=== PATIENT | female | born 1985 | race Caucasian/White ===

== ENCOUNTER 2024-11-10 10:02 | Outpatient (AMB) | payer OTHER, SELFPAY ==
--- NOTE | 2024-11-10 10:09 | MHC.OFFVIS ---
Vital Signs 11/10/24 10:20 BP 128/88 Blood Pressure Location Rt brachial Position Sitting Respiration 16 Pulse 69 Pulse Oximetry (%) 98 Intake Visit Reasons: Re-Establish Care - Migraine Allergies amoxicillin Allergy (Unknown, Verified 11/10/24 10:20) Unknown Penicillins Allergy (Unknown, Verified 11/10/24 10:20) Unknown HPI Comments Details: Rosibel is a 39-year-old female patient presenting to the clinic for a migraine intake visit. She is transferring her care from [facility] to [facility]. She was previously following me at [facility]. She has been treating her migraines with Botox therapy and Ajovy for maintenance therapy and historically has not had much luck with abortive therapy. She is currently experiencing migraine headaches 5 times per week and has been consistent with her Botox therapy as well as Ajovy injections once monthly. She notes that over the course of the last month she has had visual auras described as shapes in her left visual field which block her vision on that side. Approximately 10-15 minutes later she develops a headache. Headaches are similar to previous. She has however never experienced visual auras in the past aside from the last month or so. She has had a total of 3 migraines with aura since that time. She is not sure if anything has triggered this. She has not had any obvious changes in her menses though historically this has been irregular and while she does note some stress triggers at home these do not seem to have been more acute over the last month and prior. We did review that prior to her start up on Botox therapy, she was having migraines on a near daily basis accompanied by sound sensitivity and nausea that were heavily impacting her day-to-day life. With initiation of Botox therapy, she does feel that her migraines are much better controlled as she is now experiencing 5 migraine days per month in comparison to nearly 30. Headache characteristics: Time of onset:Age 31 Location: Bilateral and retro-orbital but can be unilateral Radiation: None Positional component:None Character: Throbbing and stabbing Severity: Can be severe and affect ability to perform ADLs Duration: Can last up to an entire day and even extended so the next day Frequency:5 per week Acute aggravating factors: Loud noises and stress Acute relieving factors: Rest and quiet Associated symptoms:Nausea, sensitivity to sound Aura: Left visual aura Headache triggers:Stress Relation to menses:Menses are not regular Other related background information: Sleep:Awakening from sleep feeling tired. Has a deviated septum. Will be having a sleep study soon Stressors:Stress at home regarding her son Hydration:Good Caffeine intake: Total 1 red bull per day Alcohol intake:None Substance use:None Tobacco use:None Last eye exam:1-2 years ago Last dental visit:1 year ago History of head injury: None Family planning considerations:None. Not planning to become Past medication trials: Metoprolol-side effects Elavil side effects Magnesium/B2-not effective Topamax-kidney stones Sumatriptan- Sideffects Rizatriptan- Sideffects Sumatriptan not effective Ubrelvy- Ineffective Nurtec- Nausea Prior workup: MRI brain 05/19/2020 with [facility]. This was noted in prior documentation to be normal. No report or images available for my review. Review of Systems Const Reports as per HPI Physical Exam Const General: cooperative, healthy appearing, comfortable and no acute distress Nutritional Appearance: well nourished Orientation/consciousness: patient oriented x3 Limitations: no limitations HEENT Head: Yes normal to inspection and Yes normocephalic Eyes General: appearance normal, both eyes and all related structures Visual Villa: normal visual villa by confrontation Alignment and Position: alignment normal Periorbital: periorbital findings normal Eyelids: Yes eyelids normal Conjunctivae: conjunctivae normal Sclerae: sclerae normal Neck Neck: Yes normal visual inspection and Yes full ROM General: Yes no CVA tenderness Back/Spine/Pelvis Back: no CVA tenderness Cervical Spine: normal cervical lordosis Thoracic/Lumbar Spine: thoracic and lumbar spine normal to inspection Neuro General: patient oriented x3, tone normal and deep tendon reflexes 2+ bilaterally Cranial nerves: Yes CN's II-XII intact bilaterally and Yes Facial sensation intact/muscles of mastication intact Cognition (Neuro): normal cognition Gait exam (Neuro): Normal gait present Motor exam (neuro): 5/5 motor strength present throughout and no tremor noted Sensory Exam: double simultaneous stimulation for sensation normal Romberg Test: Negative Pupils: Normal pupillary reactivity/response: bilateral Psych Appearance: grossly normal Mental Status: mental status grossly normal Speech and movement: Normal speech and movement present and Clear speech present Affect: normal affect Attitude: cooperative Thought process: Normal thought process present Thought content: Normal thought content present Insight: Good insight present (Psych) Judgement: Good judgement present (Psych) Assessment & Plan Assessment & Plan (1) Chronic migraine with aura without status migrainosus, not intractable: Code(s): G43.E09 - Chronic migraine with aura, not intractable, without status migrainosus Category: Medical Plan Rosibel is a 39-year-old female patient presenting today to establish care for her migraine treatment and management. She has been doing much better on Ajovy once monthly in combination with Botox therapy every 12 weeks. She however has not had much luck with as needed/acute therapy but has never tried a nasal triptan in the past. I will send for a trial of nasal zolmitriptan. Because she has had a change in her migraines which now include visual auras, I will also recommend that we obtain an MRI of the brain to rule out any structural abnormalities. -Continue Ajovy 225 mg once monthly for migraine prevention -Continue Botox every 12 weeks for migraine prevention -MRI brain without contrast -Trial of nasal zolmatriptan -Follow-up will be determined based on Botox approval time Coding Level of Care Code New Pt Level 4 (45045) Diagnoses Chronic migraine with aura without status migrainosus, not intractable G43.E09
[2024-11-10 10:20] VITALS: BP 128/88; PULSE 69; RESP 16; O2SAT 98
--- OUTSIDE RECORDS SUMMARY | 2024-11-10 12:08 | XMS_ITS | Patient Health Record ---
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 Name Role Phone Gisselle Andrade Primary Care Provider Unavaila ble Allergies Allergen (clinical drug ingredient) Drug/Non Drug Allergy documented on EMR Reaction Allergy Type Onset Date Status amoxicillin Amoxicillin Unknown Drug Allergy Act adri strawberry allergenic extract [place] (Diagnostic) Unknown Drug Allergy Active Reason For Referral No Information Medications Medication SIG (Take, Route, Fr equency, Duration) Notes Start Date End Date Status Albuterol Sulfate Un known Cetirizine HCl 10 MG 1 tablet Orally Once a day Unknown Omeprazole 20 MG 1 capsule 30 minutes before morning meal Orally Once a day U nknown Suboxone Unknown Vitamin D Unknown Artificial Tears Unk nown Nurtec 75 MG 1 tablet on the tong ue and allow to dissolve as needed for migraine. Max dose 1 pill in 24h. Orally Once a day PRN Ac tive Botox 200 UNIT 165 Units for tx of headaches Injection; Duration: 90 days 11/01/2022 Act adri Ajovy 225 MG/1.5ML 1 INJECTION MONTHLY SUBCUTANEOUS ONCE A MONTH 30 DAYS; Duration: 30 Active Etonogestrel 68 MG as directed Subcutaneous Unknown Social History Sex Assigned At : Social History Observation Description Sex Assigned At Female Section Notes: 4 children. 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 tobacco- no etoh- no cannabis- no drugs- remote hx Problems Problem Type SNOMED Code ICD Code Onset Dates Problem Status W/U Status Risk Notes Problem Migraine without aura, not refractory (011149055) Migraine without aura and without status migrainosus, not intractable (G43.009) Active confirmed Problem Refractory migraine without aura (152701024) Intractable migraine without aura and without status migrainosus (G43.019) Active confirmed Plan Of Treatment No Information Insurance Providers Payer Name Payer Address Payer Phone Subscriber Number Group Number Insured Name Patient Relationship to Insured Coverage Start Date Coverage End Date [facility] [address] [place] [address] [id number] Rosibel Kelley Self - patient is the insured [facility] [address] [place] [address] [id number] Rosibel Kelley Self - patient is the insured Medical (General) History Medical History History ICD Code allergic rhinitis GERD anxiety/depression obesity migraines asthma hx opioid dependence hx kidney stone Surgical History Surgery Date(Month/Year) lithotripsy
== END 2024-11-10 10:50 | disposition home or self-care (01) ==
LOC: HO.HSM 10:02
PROVIDERS: PCP Physician Assistant; Visit Provider Nurse Practitioner
DX: G43.E09 Chronic migraine with aura, not intractable, without status migrainosus (principal)
CPT/HCPCS: 99204

== ENCOUNTER → 2024-11-10 10:02 | Outpatient (BNVA) | payer OTHER, SELFPAY | PROVIDERS: PCP Physician Assistant; Visit Provider Nurse Practitioner | DX: G43.E09 Chronic migraine with aura, not intractable, without status migrainosus (principal) | CPT/HCPCS: 99202 ==

== ENCOUNTER 2024-11-15 09:59 | Outpatient (AMB) | payer OTHER, SELFPAY ==
[2024-11-15 10:00] VITALS: BP 122/80; PULSE 88; RESP 16; O2SAT 99; BMI 23.3
--- NOTE | 2024-11-15 10:00 | A.OFFVIS_ITS ---
Vital Signs 11/15/24 10:00 Height 5 ft 4 in Weight 136 lb BMI 23.3 BP 122/80 Blood Pressure Location Lt brachial Position Sitting Respiration 16 Pulse 88 Pulse Oximetry (%) 99 Intake Visit Reasons: 1 200u Vial Buy& bill Broomcorn Thresher Required: No Allergies amoxicillin Allergy (Unknown, Verified 11/15/24 10:01) Unknown Penicillins Allergy (Unknown, Verified 11/15/24 10:01) Unknown HPI Comments Details: Rosibel is a 39-year-old female patient presenting to the clinic for Botox therapy. She is transferring her care from [facility] to [facility]. She was previously following me at [facility]. She has been treating her migraines with Botox therapy and Ajovy for maintenance therapy and historically has not had much luck with abortive therapy. She is currently experiencing migraine headaches 5 times per week and has been consistent with her Botox therapy as well as Ajovy injections once monthly. She has no concerns for today's visit. Per last documented office note: She notes that over the course of the last month she has had visual auras described as shapes in her left visual field which block her vision on that side. Approximately 10-15 minutes later she develops a headache. Headaches are similar to previous. She has however never experienced visual auras in the past aside from the last month or so. She has had a total of 3 migraines with aura since that time. She is not sure if anything has triggered this. She has not had any obvious changes in her menses though historically this has been irregular and while she does note some stress triggers at home these do not seem to have been more acute over the last month and prior. We did review that prior to her start up on Botox therapy, she was having migraines on a near daily basis accompanied by sound sensitivity and nausea that were heavily impacting her day-to-day life. With initiation of Botox therapy, she does feel that her migraines are much better controlled as she is now experiencing 5 migraine days per month in comparison to nearly 30 . Headache characteristics: Time of onset:Age 31 Location: Bilateral and retro-orbital but can be unilateral Radiation: None Positional component:None Character: Throbbing and stabbing Severity: Can be severe and affect ability to perform ADLs Duration: Can last up to an entire day and even extended so the next day Frequency:5 per week Acute aggravating factors: Loud noises and stress Acute relieving factors: Rest and quiet Associated symptoms:Nausea, sensitivity to sound Aura: Left visual aura Headache triggers:Stress Relation to menses:Menses are not regular Other related background information: Sleep:Awakening from sleep feeling tired. Has a deviated septum. Will be having a sleep study soon Stressors:Stress at home regarding her son Hydration:Good Caffeine intake: Total 1 red bull per day Alcohol intake:None Substance use:None Tobacco use:None Last eye exam:1-2 years ago Last dental visit:1 year ago History of head injury: None Family planning considerations:None. Not planning to become Past medication trials: Metoprolol-side effects Elavil side effects Magnesium/B2-not effective Topamax-kidney stones Sumatriptan- Sideffects Rizatriptan- Sideffects Sumatriptan not effective Ubrelvy- Ineffective Nurtec- Nausea Prior workup: MRI brain 05/19/2020 with [facility]. This was noted in prior documentation to be normal. No report or images available for my review. Review of Systems Const Reports as per HPI Physical Exam Vital Signs: Last Vital Signs Pulse 88 11/15/24 10:00 Resp 16 11/15/24 10:00 BP 122/80 11/15/24 10:00 Pulse Ox 99 11/15/24 10:00 BMI result Body Mass Index 23.3 Const General: cooperative, comfortable and no acute distress Orientation/consciousness: patient oriented x3 HEENT Head: Yes normal to inspection Eyes General: appearance normal, both eyes and all related structures Alignment and Position: alignment normal EOM: EOMs intact bilaterally Neuro General: patient oriented x3 Cranial nerves: Yes CN's II-XII intact bilaterally Cognition (Neuro): normal cognition Gait exam (Neuro): Normal gait present Office Procedures Botulinum toxin Injection Details: Procedure: Botox therapy for Chronic Migraine Laterally: Bilateral Indications: Chronic Migraine Medications: Botox 155units Timeout performed before procedure, patient identified with full name and date of . Risks and benefits of procedure reviewed, as well as site verified, sonsent signed, allergies reviewed, and medication reconsilliatino reviewed/completed. Following universal hygiene protocol and PREEMPT protocol, Botox 200unit vial was reconstituted with 4cc normal saline for a final concentration of 5units/0.1cc. The areas of injection were cleansed with alcohol. A 30g 0.5 needle was used to administer the injections as below. Procerus: 5units midline Personnel Technician: 5units left and 5units right Frontalis: 10units left and 10units right Temporalis: 20units left and 20units right Occipitalis:15units left and 15units right Cervical paraspinal 10units left and 10units right Trapezius 15units left and 15units right No noted paresthesias during injection 155units of Botox used and 45units wasted per PREEMPT protocol Complications: None Patient was observed for 15 minutes after the procedure and discharged home with instructions to apply ice to their head as needed. [address]167 - Migraine Procedure code (CPT) selection complete Office Meds onabotulinumtoxinA 200 unit solution for injection Performing Provider: Evangelina Beltran CNP [place] [facility] [place] [facility] Administered by: Evangelina Beltran CNP on 11/15/24 10:42 Dose Route Admin Location Dispensed Lot Number Expiration Date [facility] [employer] 155 unit IM 200 units [id number] 01/30/27 1503-5800-03 [employer] AN/BOTOX Total Dispensed Waste 200 units 22.5 % Assessment & Plan Assessment & Plan (1) Chronic migraine without aura without status migrainosus, not intractable: Code(s): G43.709 - Chronic migraine without aura, not intractable, without status migrainosus Category: Medical Plan: . Plan Chronic migraine. Here today for Botox therapy. Botox therapy was performed without any complications. Patient discharged at baseline. -follow up in 12 weeks for next round of Botox therapy -patient will contact me in the meantime should any concerns arise -continue zolmitriptan nasal spray for as-needed abortive therapy Orders: Orders AMB Botulinum toxin Injection Today G43.709 - Chronic migraine without aura, not intractable, without status migrainosus Coding Level of Care Code Est Pt Level 1 (27520) Diagnoses Chronic migraine without aura without status migrainosus, not intractable G43.709 CPT Codes Botox Injection - Botox 3: 47367 - Migraine ([id number])
--- OUTSIDE RECORDS SUMMARY | 2024-11-15 12:26 | XMS_ITS | Patient Health Record ---
Author Organization [place] [address] Location Address [address] [place] [phone] Care Team Providers Care Irish Moss Gatherer Name Role Phone Gisselle Andrade Primary Care Provider Unavaila ble Allergies Allergen (clinical drug ingredient) Drug/Non Drug Allergy documented on EMR Reaction Allergy Type Onset Date Status amoxicillin Amoxicillin Unknown Drug Allergy Act adri strawberry allergenic extract [place] (Diagnostic) Unknown Drug Allergy Active Reason For [...] Notes Problem Migraine without aura, not refractory (438026494) Migraine without aura and without status migrainosus, not intractable (G43.009) Active confirmed Problem Refractory migraine without aura (584110990) Intractable migraine without aura and without status migrainosus (G43.019) Active confirmed Plan Of Treatment No Information Insurance Providers Payer Name Payer Address Payer Phone Subscriber Number Group Number Insured Name Patient Relationship to Insured Coverage Start Date Coverage End Date [facility] [address] [place] [address] [id number] Rosibel Kelley Self - patient is the insured [facility] [address] [place] [address] [id number] Rosibel Kelley Self - patient is the insured Medical (General) History Medical History History ICD Code allergic rhinitis GERD anxiety/depression obesity migraines asthma hx opioid dependence hx kidney stone Surgical History Surgery Date(Month/Year) lithotripsy
== END 2024-11-15 10:48 | disposition home or self-care (01) ==
LOC: HO.HSM 10:00
PROVIDERS: PCP Physician Assistant; Visit Provider Nurse Practitioner
DX: G43.709 Chronic migraine without aura, not intractable, without status migrainosus (principal)
CPT/HCPCS: 64615

== ENCOUNTER → 2024-11-15 09:59 | Outpatient (BNVA) | payer OTHER, SELFPAY | PROVIDERS: PCP Physician Assistant; Visit Provider Nurse Practitioner | DX: G43.709 Chronic migraine without aura, not intractable, without status migrainosus (principal) | CPT/HCPCS: 64615; 99211; J0585 ==

== ENCOUNTER 2025-02-14 19:08 | Outpatient (REF) | payer OTHER, SELFPAY ==
--- NOTE | ~2025-02-14 | MR_ITS ---
EXAMINATION: MR BRAIN WITHOUT CONTRAST CLINICAL INFORMATION: G 43.809. Chronic migraine with aura. COMPARISON: None available. TECHNIQUE: MRI of the brain was obtained using routine sequences without contrast. FINDINGS: No restricted diffusion. No acute intracranial hemorrhage, mass effect, midline shift, hydrocephalus or herniation. Caballero-white matter differentiation is normal. Posterior cranial fossa contents demonstrated no signal abnormality or mass effect. Normal position of the cerebellar tonsils. Sellar/suprasellar region is normal. Flow-void signal within the main cerebral vessels is normal. Multiple mucus retention cyst, left maxillary sinus. MR/MR head/brain wo con IMPRESSION: No acute or structural brain abnormality. Electronically signed by: Daniel Perez MD 02/15/2025 06:43 AM GOKUL BRAVO
--- OUTSIDE RECORDS SUMMARY | 2025-02-14 22:49 | XMS_ITS | Patient Health Record ---
Author Organization [facility] [address] Location Address [address] [place] [phone] Care Team Providers Care Bulb Weeder Name Role Phone Gisselle Andrade Primary Care Provider Unavaila ble Allergies Allergen (clinical drug ingredient) Drug/Non Drug Allergy documented on EMR Reaction Allergy Type Onset Date Status amoxicillin Amoxicillin Unknown Drug Allergy Act adri strawberry allergenic extract [place] (Diagnostic) Unknown Drug Allergy Active Reason For [...] Notes Problem Migraine without aura, not refractory (597233625) Migraine without aura and without status migrainosus, not intractable (G43.009) Active confirmed Problem Refractory migraine without aura (755531075) Intractable migraine without aura and without status migrainosus (G43.019) Active confirmed Plan Of Treatment No Information Insurance Providers Payer Name Payer Address Payer Phone Subscriber Number Group Number Insured Name Patient Relationship to Insured Coverage Start Date Coverage End Date [facility] [address] [place] [address] [id number] Rosibel Kelley Self - patient is the insured [facility] [address] [place] [phone] [id number] Rosibel Kelley Self - patient is the insured Medical (General) History Medical History History ICD Code allergic rhinitis GERD anxiety/depression obesity migraines asthma hx opioid dependence hx kidney stone Surgical History Surgery Date(Month/Year) lithotripsy
--- OUTSIDE RECORDS SUMMARY | 2025-02-14 22:49 | XMS_ITS | Data Portability ---
Author Organization [place] - [employer] [facility], [facility] Quality And Reliability Engineer Address [address] [place] [address] Assessment Encounter Date Assessment Date Assessment LastModified by Organization Details LastModified Time 11/27/2021 11/27/2021 Problems Problems reviewed by: Marilin Borden Problems reviewed on: 11/27/2021 10:44 am Allergies Allergies reviewed by: Marilin Borden Allergies reviewed on: 11/27/2021 10:38 am amoxicillin Penicillins Medications Medications reviewed by: Marilin Chenlard Medications reviewed on: 11/27/2021 10:38 am Suboxone Vitals Blood Pressure: 115/72 Pulse: 68 bpm Completed Procedures D0330 - Panoramic radiographic image Diagnoses: Z01.20 D0140 - Limited oral evaluation - problem focused Diagnoses: Z01.20 Completed Procedures (cont.) Additional Comments: Explained and discussed conditions, findings, and plan of care. Follow-Up/Next Visit: Next appointment date is 02/13/2022 at 2:30 PM Problems Problems reviewed by: Marilin Borden Problems reviewed on: 11/27/2021 10:44 am Allergies Allergies reviewed by: Marilin Borden Allergies reviewed on: 11/27/2021 10:38 am amoxicillin Penicillins Medications Medications reviewed by: Marilin Chenlard Medications reviewed on: 11/27/2021 10:38 am Suboxone Vitals Blood Pressure: 115/72 Pulse: 68 bpm Additional Comments: Explained and discussed conditions, findings, and plan of care. Follow-Up/Next Visit: Next appointment date is 02/13/2022 at 2:30 PM Completed Procedures D7140 - Extraction, erupted tooth or exposed root (elevation and/or forceps removal) Teeth: 2 Diagnoses: K04.7 D0330 - Panoramic radiographic image Diagnoses: Z01.20 D0140 - Limited oral evaluation - problem focused Diagnoses: Z01.20 Completed Procedures (cont.) 1 lidocaine, ext #2 Additional Comments: Explained and discussed conditions, findings, and plan of care. Follow-Up/Next Visit: Next appointment date is 02/13/2022 at 2:30 PM I attest that the treatment rendered today is completed and treatment met the standard of care. , 11:15 AM. [id number] Not available 12/04/2021 14:24:14 03/12/2023 03/12/2023 Reason for Encounter Limted/Emergency Encounter Date: 03/12/2023 Problems Problems reviewed by: Yoly Escalona Problems reviewed on: 03/12/2023 09:04 am Allergies Allergies reviewed by: Yoly Escalona Allergies reviewed on: 03/12/2023 09:04 am amoxicillin Penicillins Medications Medications reviewed by: Yoly Escalona Medications reviewed on: 03/12/2023 09:04 am Suboxone ZyrTEC Treatment Planned Procedures D3330 - Endodontic therapy, molar (excluding final gnosticism) Teeth: 19 Stages: One, Two, Final D3320 - Endodontic therapy, bicuspid tooth (excluding final gnosticism) Teeth: 20 Stages: One, Two, Final D7210 - Extraction, erupted tooth requiring removal of bone and/or sectioning of tooth, and including elevation of mucoperiosteal flap if indicated Teeth: 19 20 Completed Procedures D0140 - Limited oral evaluation - problem focused D0220 - Intraoral - periapical first radiographic image Teeth: 20 Completed Procedures (cont.) Pt presents for limited exam.Medical and dental hx reviewed. PT IS ALLERGIC TO PENICILLIN. CC. : severe constant pain in lower left teeth, pointing to tooth # 19 area. 1 PA of # 20 acquired, showing signs of PARL along the apical of #20, #19 also deep decay mostly from the buccal surface. Clinical exam reveals extensive decay approximating nerve from the distal surface #20,#19 from buccal surface. Tender to palpation and percussion. Possible acute apical periodontitis #19 and periapical abcess #20. Rec RCT, B/U and crown with an alternative for EXT. Pt not sure what treatment she wants to get done and would definitely want to save the tooth if possible.pt was prescribed antibiotics at [facility] urgent care that she has taken.Pt was dimissed in good condition with no complications from today's Tx. N.V. see non destructive evaluation manager: rct/ext? Additional Comments:pt was also given a referral to find providers if they can provide treatment rct/ext by a different provoder taking her insurance. Explained and discussed conditions, findings, and plan of care. Follow-Up/Next Visit: Next appointment date is 08/01/2023 at 09:00 AM Treating Provider: Juan Manuel Noe DDS Reason For Encounter: Extractions Treating Provider ABRIL Yen I attest that the treatment rendered today is completed and treatment met the standard of care. , 9:47 AM. [email or web address] Not available 03/13/2023 10:35:23 09/01/2023 09/01/2023 Reason for Encounter Endodontics Encounter Date: 8:00 AM - 09/01/2023 Treating Provider: ABRIL Yen Problems Problems reviewed by: María Elena Rhodes Problems reviewed on: 09/01/2023 08:12 am Allergies Allergies reviewed by: María Elena Rhodes Allergies reviewed on: 09/01/2023 08:12 am amoxicillin Penicillins Medications Medications reviewed by: María Elena Rhodes Medications reviewed on: 09/01/2023 08:12 am Suboxone ZyrTEC Completed Procedures D0140 - Limited oral evaluation - problem focused Completed Procedures (cont.) Pt presents for limited exam.Medical and dental hx reviewed. CC. : on and off pain in the lower left back teeth area,where the rct was planned #19,#20 No Xrays were taken today, Clinical exam reveals extensive decay approximating nerve from the buccal surface on #19 DB surface the cavity is deep into gumline and may need crown lwngthening for permanent restorative procedure. Tender to palpation and percussion. Possible acute apical periapical abcess #19,#20 Rec RCT, B/U and crown with an alternative for EXT. Pt said she has different insurance now and not [facility] and wants to go to [facility] to see if she can have sooner appointments a sshe doesnot want to do one procedure today and wait 6 months for next procedure.Pt was dimissed in good condition with no complications from today's Tx. N.V. see non destructive evaluation manager:follow up.Pt will call if she teeth are symptomatic and antibiotics will be prescribed only then. Additional Comments: Explained and discussed conditions, findings, and plan of care. Treating Provider ABRIL Yen I attest that the treatment rendered today is completed and treatment met the standard of care. , 11:23 AM. [email or web address] Not available 09/02/2023 08:19:30 Plan of Treatment Reminders Order Date Submit Date Provider Last Modified By Organization Details Last Modified Time Details Appointments None record ed. Lab None record ed. Referral None record ed. Procedures None record ed. Surgeries None record ed. Imaging None record ed. Medication Orders None record ed. Patient TargetsNo targets recorded. Patient InstructionsNo instructions recorded. Reason for Referral None Reported. Medical Equipment None Reported. Allergies Allergen ID Allergen Name Allergen Category Reaction Reaction Severity Criticality Documentation Date Start Date Code Code System Note Provider Name and Address Organization Details Recorded Time 765371 amoxicill in medicatio n Not available Not available Not available 11/27/2021 723 RxNorm Not Available [facility] - 3791 09:57:24 477516 Product containin g penicilli n (product) medicatio n Not available Not available Not available 11/27/2021 33036 8001 SNOMED [facility] 2 09:57:47 Medications Name Sig Start Date Stop Date Status Note LastModified by Organization Details LastModified Time Zyrtec active Not Available Not Availa ble Not Available Suboxone active Not Available Not Avai lable Not Available Vitals Date Recorded Heart rate Systolic And Diastolic Provider Name and Address Organization Details Last Updated DateTime 11/27/2021 68 /min 115/72 mm[Hg] Not Available [facility] 379111/27/2021 10:43:19 Social History None recorded. Functional Status None recorded. Mental Status None recorded. Family History Nothing Reported. Medical History No medical history recorded. Gynecological HistoryNo gynecological history recorded. Obstetrics History GPAL:G 0 P 0 0 0 0 Past Encounters Encounter ID Performer Location Encounter Start Date Encounter Closed Date Diagnosis/Indication Diagnosis SNOMED-CT Code Diagnosis ICD10 Code Diagnosis IMO Codes Diagnosis Note [id number] Perfecto Magdaleno [address] [place] [address] 11/27/2021 09:52:20 12/04/2021 14:24:16 [id number] Ekateirna jara [address] [address] 03/12/2023 08:21:05 03/13/2023 10:35:28 [id number] Ekaterina jara [address] [place] [address] 09/01/2023 08:02:20 09/02/2023 08:19:34 Health Concerns Section Related Observation LastModified by Organization Detai ls LastModified Time None Recorded Concern Status LastModified by Organization Details LastModified Time None Recorded Advance Directives Directive None Recorded Payers Insurance Date Sequence Insurance Name Policy Number Policy Morris Covered Member ID Morris Member ID Guarantor Name 09/01/2023 [employer] Rosibel Rodarte [id number] Rosibel Rodarte 09/01/2023 1 [facility] PUBLIC PLANS [facility] [id number] Rosibel Rodarte [id number] Rosibel Rodarte 11/27/2021 [employer] (MOVED TO HOLD) Rosibel Rodarte [id number] Rosibel Rodarte 11/27/2021 *SELF PAY* Rosibel Rodarte 09/01/2023 [place] Rosibel Rodarte [id number] Rosibel Rodarte 05/27/2024 [place] 21 Rosibel Rodarte [id number] Rosibel Rodarte 05/27/2024 HEALTH SAFETY NET PARTIAL Rosibel Rodarte [id number] Rosibel Rodarte 05/27/2024 HSN OVER 21 [id number] Rosibel Rodarte [id number] Rosibel Rodarte OBLeigh Episode No OBEpisode recorded.
== END 2025-02-14 19:09 | disposition home or self-care (01) ==
LOC: HO.MRI 19:08
PROVIDERS: Visit Provider Nurse Practitioner
DX: G43.E09 Chronic migraine with aura, not intractable, without status migrainosus (principal)
CPT/HCPCS: 70551

== ENCOUNTER → 2025-02-14 19:18 | Outpatient (BNV) | payer OTHER, SELFPAY | PROVIDERS: Visit Provider Radiology Diagnostic Radiology | DX: G43.E09 Chronic migraine with aura, not intractable, without status migrainosus (principal) | CPT/HCPCS: 70551 ==

== ENCOUNTER 2025-02-15 09:29 | Outpatient (AMB) | payer OTHER, SELFPAY ==
--- NOTE | 2025-02-15 09:36 | A.OFFVIS_ITS ---
Vital Signs 02/15/25 09:40 Height 5 ft 4 in Weight 136 lb BMI 23.3 BP 120/72 Blood Pressure Location Rt brachial Position Sitting Respiration 16 Pulse 84 Pulse Oximetry (%) 98 Oxygen Delivery Method Room Air Intake Visit Reasons: 200u Botox Circulation Assistant Required: No Allergies amoxicillin Allergy (Unknown, Verified 02/15/25 09:42) Unknown Penicillins Allergy (Unknown, Verified 02/15/25 09:42) Unknown HPI Comments Details: Rosibel is a 39-year-old female patient presenting to the clinic for Botox therapy. She has been treating her migraines with Botox therapy and Ajovy for maintenance therapy and historically has not had much luck with abortive therapy. She is currently experiencing migraine headaches 4 times per week and has been consistent with her Botox therapy as well as Ajovy injections once monthly. Since the time of last visit, she had 1 migraine with aura. The other migraines have not included aura. She did try the zolmitriptan nasal spray x1 but it produced anxiety for her and she has not tried again. It might have produced a slight improvement in her headache that day. After her last round of Botox therapy, she did develop a very severe headache after the injection that resolved on its own. To review: Rosibel history of migraine without aura for course of the last few months, she has developed some visual auras with her migraines. It is rare that she will have if not less. Otherwise, save for typical characteristics. At the time of our last visit, because she was having change in her migraines including the new onset of auras, I did perform an MRI of the brain which she had completed on 12/25. This was a normal study. Headache characteristics: Time of onset:Age 31 Location: Bilateral and retro-orbital but can be unilateral Radiation: None Positional component:None Character: Throbbing and stabbing Severity: Can be severe and affect ability to perform ADLs Duration: Can last up to an entire day and even extended so the next day Frequency:5 per week Acute aggravating factors: Loud noises and stress Acute relieving factors: Rest and quiet Associated symptoms:Nausea, sensitivity to sound Aura: Left visual aura Headache triggers:Stress Relation to menses:Menses are not regular Other related background information: Sleep:Awakening from sleep feeling tired. Has a deviated septum. Will be having a sleep study soon Stressors:Stress at home regarding her son Hydration:Good Caffeine intake: Total 1 red bull per day Alcohol intake:None Substance use:None Tobacco use:None Last eye exam:1-2 years ago Last dental visit:1 year ago History of head injury: None Family planning considerations:None. Not planning to become Past medication trials: Metoprolol-side effects Elavil side effects Magnesium/B2-not effective Topamax-kidney stones Sumatriptan- Sideffects Rizatriptan- Sideffects Sumatriptan not effective Ubrelvy- Ineffective Nurtec- Nausea Prior workup: MRI brain 02/14/2025: Normal study MRI brain 05/19/2020 with [facility]. This was noted in prior documentation to be normal. No report or images available for my review. Review of Systems Const All systems reviewed & are unremarkable except as noted in HPI and below Physical Exam Vital Signs: Last Vital Signs Pulse 84 02/15/25 09:40 Resp 16 02/15/25 09:40 BP 120/72 02/15/25 09:40 Pulse Ox 98 02/15/25 09:40 Oxygen Delivery Method Room Air 02/15/25 09:40 BMI result Body Mass Index 23.3 Const General: cooperative, comfortable and no acute distress Orientation/consciousness: patient oriented x3 HEENT Head: Yes normal to inspection Eyes General: appearance normal, both eyes and all related structures Alignment and Position: alignment normal EOM: EOMs intact bilaterally Neuro General: patient oriented x3 Cranial nerves: Yes CN's II-XII intact bilaterally Cognition (Neuro): normal cognition Gait exam (Neuro): Normal gait present Office Procedures Botulinum toxin Injection Details: Procedure: Botox therapy for Chronic Migraine Laterally: Bilateral Indications: Chronic Migraine Medications: Botox 155units How the med was supplied: Patient supplied Timeout performed before procedure, patient identified with full name and date of . Risks and benefits of procedure reviewed, as well as site verified, sonsent signed, allergies reviewed, and medication reconsilliatino reviewed/completed. Following universal hygiene protocol and PREEMPT protocol, Botox 200unit vial was reconstituted with 4cc normal saline for a final concentration of 5units/0.1cc. The areas of injection were cleansed with alcohol. A 30g 0.5 needle was used to administer the injections as below. Procerus: 5units midline Oil Well Directional Surveyor: 5units left and 5units right Frontalis: 10units left and 10units right Temporalis: 20units left and 20units right Occipitalis:15units left and 15units right Cervical paraspinal 10units left and 10units right Trapezius 15units left and 15units right No noted paresthesias during injection 155units of Botox used and 45units wasted per PREEMPT protocol Complications: None Patient was observed for 15 minutes after the procedure and discharged home with instructions to apply ice to their head as needed. 61132 - Migraine Procedure code (CPT) selection complete Office Procedure [facility] Details: Non billable procedure: Procedure: Nerivio neuromodulation device Benefits and risks reviewed with the patient prior to initiation of this therapy (risks including risk for allergic reaction to adhesive,and slight site discomfort). Patient agreed to proceed with neuromodulation. Nerivio device applied to patient's left arm a proximally 10 minutes prior to starting her Botox treatment. The treatment was increased to a level of 35% prior to her treatment and remained in place during her procedure and for 10 minutes after her procedure. The Nerivio device was in place at 35% for approximately 45 minutes. There were no complications during this procedure and her pain was a 1/10 after her treatment. Office Meds onabotulinumtoxinA 200 unit solution for injection Performing Provider: Evangelina Beltran CNP Performing Location: [facility] Administered by: Evangelina Beltran CNP on 02/15/25 10:12 Dose Route Admin Location Dispensed Lot Number Expiration Date [facility] Stone Splitter 155 unit IM 200 units [id number] 06/01/27 3021-2071-27 [employer]ERG AN/BOTOX Total Dispensed Waste 200 units 22.5 % Assessment & Plan Assessment & Plan (1) Chronic migraine without aura without status migrainosus, not intractable: Code(s): G43.709 - Chronic migraine without aura, not intractable, without status migrainosus Category: Medical Plan: . Plan Chronic migraine. Here today for Botox therapy. Botox therapy was performed without any complications. Patient discharged at baseline. MRI reviewed together at time of visit which was normal. She has no further concerns for today. Nerivio device used during today's botox therapy in efforts to reduce her chance of getting a rebound migraine this time. -follow up in 12 weeks for next round of Botox therapy -continue ajovy 225 monthly -patient will contact me in the meantime should any concerns arise -continue zolmitriptan nasal spray for as-needed abortive therapy Orders: Orders AMB Botulinum toxin Injection Today G43.709 - Chronic migraine without aura, not intractable, without status migrainosus Coding Level of Care Code Est Pt Level 3 (37349) Diagnoses Chronic migraine without aura without status migrainosus, not intractable G43.709 CPT Codes Botox Injection - Botox 3: 06457 - Migraine ([id number])
[2025-02-15 09:40] VITALS: BP 120/72; PULSE 84; RESP 16; O2SAT 98; BMI 23.3
--- OUTSIDE RECORDS SUMMARY | 2025-02-15 11:05 | XMS_ITS | Patient Health Record ---
Author Organization [facility] [address] Location Address [address] [place] [address] Care Team Providers Care Match Up Person Name Role Phone Gisselle Andrade Primary Care Provider Unavaila ble Allergies Allergen (clinical drug ingredient) Drug/Non Drug Allergy documented on EMR Reaction Allergy Type Onset Date Status amoxicillin Amoxicillin Unknown Drug Allergy Act adri strawberry allergenic extract [place] (Diagnostic) Unknown Drug Allergy Active Reason For [...] Notes Problem Migraine without aura, not refractory (503105325) Migraine without aura and without status migrainosus, not intractable (G43.009) Active confirmed Problem Refractory migraine without aura (472272064) Intractable migraine without aura and without status migrainosus (G43.019) Active confirmed Plan Of Treatment No Information Insurance Providers Payer Name Payer Address Payer Phone Subscriber Number Group Number Insured Name Patient Relationship to Insured Coverage Start Date Coverage End Date [facility] [address] [place] [address] [id number] Rosibel Kelley Self - patient is the insured [facility] [address] [place] [address] [id number] Rosibel Kelley Self - patient is the insured Medical (General) History Medical History History ICD Code allergic rhinitis GERD anxiety/depression obesity migraines asthma hx opioid dependence hx kidney stone Surgical History Surgery Date(Month/Year) lithotripsy
== END 2025-02-15 10:18 | disposition home or self-care (01) ==
LOC: HO.HSM 09:30
PROVIDERS: Visit Provider Nurse Practitioner
DX: G43.709 Chronic migraine without aura, not intractable, without status migrainosus (principal)
CPT/HCPCS: 64615; 99213

== ENCOUNTER → 2025-02-15 09:29 | Outpatient (BNVA) | payer OTHER, SELFPAY | PROVIDERS: Visit Provider Nurse Practitioner | DX: G43.709 Chronic migraine without aura, not intractable, without status migrainosus (principal) | CPT/HCPCS: 64615; 99212; J0585 ==